=== PATIENT | female | born 1990 | race Caucasian/White ===

== ENCOUNTER 2016-07-23 15:44 | Emergency (ER) | payer OTHER ==
--- NOTE | 2016-07-23 17:56 | ED CLINICAL REPORT ---
Clinical Report - Physicians/Mid Levels [facility] [address] [place] [address] 07/23/2016 15:44 Patient: KELLY BENNETT [facility]#: [id number] Time Seen: 15:53; initial patient contact, initial documentation, patient care assumed. Arrived- By private vehicle. Historian- patient. HISTORY OF PRESENT ILLNESS Chief Complaint: VAGINAL BLEEDING. This started about 2 - 3 days ago and still present. It was abrupt in onset and has been intermittent. The symptoms are described as moderate. Modifying factors. Not worsened by anything. Not relieved by anything. 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 No abdominal pain, pelvic pain, vaginal pain, low back pain or flank pain. No missed period(s), vaginal discharge, pain with urination, urinary frequency or urgency of urination. No hematuria. Sexually active- unprotected sex and heterosexual. No exposure to sexually transmitted disease. Does not use control measures. (pt has vitamins, first ob appt 08/06). Currently . In 1st trimester. confirmed with home test and urine test. Has had no care. G 4. P 3. Not receiving care. Similar symptoms previously: None. Recent medical care: Not recently seen/assessed. REVIEW OF SYSTEMS No vomiting, diarrhea, fever, difficulty breathing or chest pain. All systems otherwise negative, except as recorded above. PAST HISTORY See nurses notes. ( PROBLEMS: Pg, bleeding . Vomiting. Abdominal Pain. Recent Travel. --15:52 Tanisha Davis R.N. ADDITIONAL SURGERIES: no known surgeries.). SOCIAL HISTORY Never smoker. Occasional alcohol use. No drug use. No recent travel. Is a local resident. FAMILY HISTORY Negative. ADDITIONAL NOTES The nursing notes have been reviewed with agreement regarding the chief complaint, HPI, ROS, PMH and patient medications and allergies. PHYSICAL EXAM Vital Signs: 07/23/2016 16:15 BP: 103/54. HR: 98. RR: 18. O2 saturation: 100%. Temp: 98.7 F. Pain level now: 0/10. Have been reviewed as normal and appear to be correct. Appearance: Alert. Oriented X3. No acute distress. HEENT: Normal external inspection. ENT: Pharynx normal. Neck: Neck supple. CVS: Heart sounds normal. Respiratory: No respiratory distress. Breath sounds normal. Chest nontender. Abdomen: Soft and nontender. Bowel sounds normal. No organomegaly. No mass. Back: Normal external inspection. : External inspection normal. Speculum exam abnormal. Slight vaginal bleeding, consisting of bright red blood, via the cervical os. No vaginal bleeding from a cervical lesion or vaginal laceration. No vaginal discharge. Cervical os closed. No tissue present. No cervicitis. No herpes-like lesions. Bimanual exam normal. Skin: Skin warm and dry. Normal skin color. No rash. Normal skin turgor. Extremities: Extremities nontender. No lower extremity edema. Neuro: Oriented X 3. Mood/affect normal. No motor deficit. No sensory deficit. LABS, X-RAYS, AND EKG Pelvic Sonogram: . iup 6w3d small bleed, hr 141 per verbal report us tech. Interpretation time: 17:01. Laboratory Tests: UA-Culture if indicated: (RUBEN: 07/23/2016 15:50) ( MsgRcvd 07/23/2016 16:39) Final results Test Result Flag Units (Reference) URINE COLOR YELLOW URINE APPEARANCE CLOUDY URINE GLUCOSE NEGATIVE (NEGATIVE) URINE BILIRUBIN NEGATIVE (NEGATIVE) URINE KETONE NEGATIVE (NEGATIVE) URINE SPECIFIC GRAVITY 1.020 (1.010-1.030) URINE PH 7.5 (5.0-8.0) URINE PROTEIN NEGATIVE (NEGATIVE) URINE UROBILINOGEN 0.2 EU/dL (0.2-1.0) URINE NITRITE NEGATIVE (NEGATIVE) URINE BLOOD 1+ (NEGATIVE) URINE LEUK ESTERASE NEGATIVE (NEGATIVE) URINE RBC 0-1 rbc/hpf (0-1) URINE WBC NONE SEEN wbc/hpf (0-1) URINE EPITHELIAL CELLS 1-3 EPI/hpf (0-5) URINE BACTERIA NONE SEEN (NONE SEEN) 4+ AMORPHOUS URINE COMMENT CULT NOT INDICATED URINE CULTURES ARE SET-UP BASED ON THE FOLLOWING CRITERIA:POSITIVE NITRITEPOSITIVE LEUKOCYTE ESTERASEGREATER THAN 10 WHITE BLOOD CELLSMODERATE (2+) OR GREATER BACTERIA Serum Qualitative: (RUBEN: 07/23/2016 16:25) ( [facility] 07/23/2016 17:54) Final results Test Result Flag Units (Reference) , SERUM POSITIVE CBC w Diff: (RUBEN: 07/23/2016 16:25) ( [facility] 07/23/2016 16:58) Final results Test Result Flag Units (Reference) WHITE BLOOD COUNT 9.8 K/uL (4.5-11.5) RED BLOOD COUNT 4.59 M/uL (4.00-5.20) HEMOGLOBIN 12.7 gm/dL (12.0-16.0) HEMATOCRIT 38.7 % (36.0-46.0) MEAN CELL VOLUME 84 fL (80-100) MEAN CORPUSCULAR HGB 28 pg (26-34) MEAN CORPUSCULAR HGB CONC 33 g/dL (31-37) RED CELL DISTRIBUTION WIDTH 15.4 H % (11.6-14.8) PLATELET COUNT 315 K/uL (150-400) NEUTROPHIL % 69.9 % (50-75) LYMPH % 22.9 L % (25-40) MONO % 5.2 % (3-14) EOSINOPHIL % 1.4 % (0-4) BASOPHIL % 0.6 % (0-2) Serum Quantitative: (RUBEN: 07/23/2016 16:25) ( [facility] 07/23/2016 18:47) Final results Test Result Flag Units (Reference) BETA HCG, QUANTITATIVE 4719 mIU/mL REFERENCE RANGE:Adult Males: <2 mIU/mLNon- Females: <6 mIU/mL Females:Approximate Approximate hCGGestational Age Range (mIU/mL) 0-1 week 0-501-2 weeks 40-3002-3 weeks 100-06402-3 weeks 500-74128-0 months 5,000-200,0002-3 months 10,000-100,0002nd trimester 3,000-50,0003rd trimester 1,000-50,000 CMP: (RUBEN: 07/23/2016 16:25) ( MsgRcvd 07/23/2016 17:10) Final results Test Result Flag Units (Reference) GLUCOSE 100 mg/dL (70-110) BUN 13 mg/dL (7-18) CREATININE 1.0 mg/dL (0.6-1.3) Estimated GFR >60 mL/min Estimated GFR- >60 mL/min Note: Persistent reduction over 3 months in eGFR<60 mL/min/1.73 m2 defines CKD. Patients with eGFR values>=60 mL/min/1.73 m2 may also have CKD if evidence ofpersistent proteinuria. Additional information may be foundat www.kidney.org. SODIUM 141 mmol/L (136-145) POTASSIUM 3.7 mmol/L (3.5-5.1) CHLORIDE 103 mmol/L (98-107) CARBON DIOXIDE 23 mmol/L (21-32) CALCIUM 9.0 mg/dL (8.5-10.1) TOTAL PROTEIN 8.3 H g/dL (6.4-8.2) ALBUMIN 4.3 g/dL (3.3-5.0) BILIRUBIN, TOTAL 0.2 mg/dL (0.0-1.0) ALKALINE PHOSPHATASE 92 U/L (46-116) AST (SGOT) 13 L U/L (15-37) ALT (SGPT) 21 U/L (12-78) . PROGRESS AND PROCEDURES Course of Care: 16:42 07/23/16. Gaurang from lab called, pt's Rh type O+. Patient counseled in person regarding the patient's stable condition, test results and diagnosis. Differential Diagnosis: I considered vaginal polyps, vaginal lesion, vaginal cancer, vulvar infection, ovarian cysts, polycystic disease of the ovaries, pelvic inflammatory disease, endometriosis, uterine fibroids, intrauterine , ectopic , incomplete , threatened , endometritis, fibroids and dysfunctional uterine bleeding as a possible cause of vaginal bleeding in this patient. This is a partial list of diagnoses considered. Above considerations are based on history, physical exam, laboratory data and other information. Differential diagnosis was discussed with patient. Disposition: Discharged home in good and unchanged condition (17:56). Condition: good and stable. CLINICAL IMPRESSION Threatened ; positive test in emergency department. Ultrasound demonstrated an intrauterine . INSTRUCTIONS Warnings: GENERAL WARNINGS: Return or contact your physician immediately if your condition worsens or changes unexpectedly, if not improving as expected, or if other problems arise. Specifically return if problem worsens. Follow-up: Follow up with your doctor in about two days even if well. Call for an appointment. Summary of care provided to patient. Understanding of the discharge instructions verbalized by patient. (Electronically signed by Mansi Hill A.R.N.P. 07/23/2016 19:06)
--- NOTE | 2016-07-23 17:56 | ED NURSING NOTES ---
Clinical Report - Nurses [facility] [address] [place] [address] 07/23/2016 15:44 [id number] Triage time 15:52. Acuity: LEVEL 3. Chief Complaint: SPOTTING. Alert. No acute distress. --16:19 Tanisha Davis R.N. 16:15 07/23/16. BP: 103/54. HR: 98. RR: 18. O2 saturation: 100%. Temp: 98.7 F. Pain level now: 0/10. --16:19 Tanisha Davis R.N. 16:15 07/23/16. BP: 103/54. HR: 98. RR: 18. O2 saturation: 100%. Temp: 98.7 F. Pain level now: 0/10. --16:19 Tanisha Davis R.N. Weight: 56.6 kg estimated. Height/Length: 60 inches Estimated. BMI: 24.4. --16:18 Tanisha Davis R.N. Medications None. --16:15 Tanisha Davis R.N. Medication/allergy information source: the patient. --16:19 Tanisha Davis R.N. Allergies None. --16:15 Tanisha Davis R.N. History Arrived by private vehicle. Historian: patient and family. Accompanied by family. Onset. (2 days ago). Last oral intake by patient was today (1100). 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 PAST MEDICAL HX: Last normal menstrual period- June 04. 4. Para 3. Abortions 0. SOCIAL HX: Never smoker. Occasional alcohol use. No drug use. FALL RISK ASSESSMENT: Fall risk assessment completed. No fall risk identified. NUTRITIONAL RISK ASSESSMENT: The nutritional risk assessment revealed no deficiencies. FUNCTIONAL ASSESSMENT: Functional assessment: no impairments noted. LEARNING NEEDS ASSESSMENT: The learning needs assessment revealed no barriers. SKIN INTEGRITY ASSESSMENT: Skin integrity risk assessment completed. No skin integrity risk identified. --16:19 Tanisha Davis R.N. PROBLEMS: Pg, bleeding . Vomiting. Abdominal Pain. Recent Travel. --15:52 Tanisha Davis R.N. ADDITIONAL SURGERIES: no known surgeries. Interventions ID band on patient. To room. --16:19 Tanisha Davis R.N. PHYSICAL ASSESSMENT Ambulatory to room. Patient gowned. GENERAL / NEURO / PSYCH: Alert. Oriented X 4. Appears in no acute distress. Appears anxious. HEENT: Mucous membranes are pink. RESPIRATORY: Respirations not labored. CVS: Capillary refill less than 2 seconds. GI / : Abdomen nontender. Scant vaginal bleeding present. EXTREMITIES: No lower extremity edema. SKIN: Skin is warm and dry. --16:20 Tanisha Davis R.N. NURSING PROGRESS NOTES Patient gowned. Head of bed elevated. Two patient identifiers checked. Call light placed in reach. Side rails up x 2. Bed placed in lowest position. Brakes of bed on. Patient ready for evaluation- chart flagged. --16:20 Tanisha Davis R.N. PELVIC EXAM: Pelvic exam performed by PROTOTYPE ENGINEER. Assisted by one nurse. Preparation: pelvic tray; patient placed in lithotomy position. Procedure: speculum exam. Light amount of vaginal bleeding noted. Status post-procedure: she was stable. Total time of assist / procedure: 15 minutes. --16:20 Tanisha Davis R.N. 16:30 07/23/2016 Site #1 started via IV in the right antecubital space with an 22g angiocath, with aseptic technique and good blood return; one attempt. Blood drawn: rainbow set. Labeled in the presence of the patient and sent to the lab. Saline lock flushed with 10 mL saline. --16:35 Tanisha Davis R.N. DISPOSITION / DISCHARGE 18:07/23/2016 Site #1 removed upon discharge. Catheter intact. --18:09 Waldemar Perry R.N. 18:07/23/16. Condition at departure: improved. The goals identified in the patient's plan of care were met. No learning barriers present. Discharge instructions provided and reviewed with the patient. Reviewed warnings. Reviewed medication(s). Treatments reviewed. Patient and spouse verbalized understanding. Written instructions provided in [place]. ( Pt to follow up with OB MD tomorrow). The patient was discharged by the physician. She was discharged home and accompanied by family. She left the Emergency Department ambulatory and via private vehicle. Family member driving. FALL RISK ASSESSMENT: Fall risk assessment completed. No fall risk identified. --18:09 Waldemar Perry R.N. 18:08 07/23/16. BP: 106/66. HR: 71. RR: 14. O2 saturation: 100% on room air. Temp: 97.9 F (oral). Pain level now: 0/10. --18:09 Waldemar Perry R.N. 18:09 07/23/16. Departure time: 18:09. --18:09 Waldemar Perry R.N. Locked/Released at 07/23/2016 18:10 by Waldemar Perry R.N.
--- NOTE | 2016-07-23 17:56 | ED ORDER SUMMARY ---
..... Patient: KELLY BENNETT OrderSheet [facility] VisitID: [id number] [address] [place] [address] 26y, F Registration Date/Time: 07/23/2016 ORDER SHEET Weight: 56.6 kg (estimated) Allergies: None GENERAL ORDERS: US OB 1st Trimester w Transvag (approx 6-7 wks) Urgent (16:13 07/23/2016 HBivens A.R.N.P.) (Ack 16:14 KHoerner) (16:35 SRoberts R.N.) CBC w Diff Urgent (16:14 07/23/2016 HBivens A.R.N.P.) (Ack 16:14 KHoerner) (16:35 SRoberts R.N.) CMP Urgent (16:14 07/23/2016 HBivens A.R.N.P.) (Ack 16:14 KHoerner) (16:35 SRoberts R.N.) UA-Culture if indicated Urgent (16:14 07/23/2016 HBivens A.R.N.P.) (Ack 16:14 KHoerner) (16:35 SRoberts R.N.) Serum Qualitative Urgent (16:14 07/23/2016 HBivens A.R.N.P.) (Ack 16:14 KHoerner) (16:35 SRoberts R.N.) Type & Rh Urgent (16:14 07/23/2016 HBivens A.R.N.P.) (Ack 16:14 KHoerner) (16:35 SRoberts R.N.) (Cancelled: Other16:43 HBivens A.R.N.P.) Serum Quantitative Urgent (17:52 07/23/2016 HBivens A.R.N.P.) (Ack 17:55 KHoerner) (17:55 KHoerner) MEDICATION ORDERS: IV FLUIDS: IV Saline Lock (16:14 07/23/2016 HBivens A.R.N.P.) (16:35 SRoberts R.N.) ORDER SHEET NOTES: [Electronically signed by Waldemar Perry R.N. (18:10 07/23/2016)] [Electronically signed by Mansi Hill (19:06 07/23/2016)] [Electronically locked/signed by Waldemar Perry R.N. (18:10 07/23/2016)]
--- NOTE | 2016-07-23 17:56 | ED CLINICAL REPORT ---
Clinical Report - Physicians/Mid Levels [facility] [address] [place] [address] 07/23/2016 15:44 [id number] Time Seen: 15:53; initial patient contact, initial documentation, patient care assumed. Arrived- By private vehicle. Historian- patient. HISTORY OF PRESENT ILLNESS Chief Complaint: VAGINAL BLEEDING. This started about 2 - 3 days ago and still present. It was abrupt in onset and has been intermittent. The symptoms are described as moderate. Modifying factors. Not worsened by anything. Not relieved by anything. 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 No abdominal pain, pelvic pain, vaginal pain, low back pain or flank pain. No missed period(s), vaginal discharge, pain with urination, urinary frequency or urgency of urination. No hematuria. Sexually active- unprotected sex and heterosexual. No exposure to sexually transmitted disease. Does not use control measures. (pt has vitamins, first ob appt 08/06). Currently . In 1st trimester. confirmed with home test and urine test. Has had no care. G 4. P 3. Not receiving care. Similar symptoms previously: None. Recent medical care: Not recently seen/assessed. REVIEW OF SYSTEMS No vomiting, diarrhea, fever, difficulty breathing or chest pain. All systems otherwise negative, except as recorded above. PAST HISTORY See nurses notes. ( PROBLEMS: Pg, bleeding . Vomiting. Abdominal Pain. Recent Travel. --15:52 Tanisha Davis R.N. ADDITIONAL SURGERIES: no known surgeries.). SOCIAL HISTORY Never smoker. Occasional alcohol use. No drug use. No recent travel. Is a local resident. FAMILY HISTORY Negative. ADDITIONAL NOTES The nursing notes have been reviewed with agreement regarding the chief complaint, HPI, ROS, PMH and patient medications and allergies. PHYSICAL EXAM Vital Signs: 07/23/2016 16:15 BP: 103/54. HR: 98. RR: 18. O2 saturation: 100%. Temp: 98.7 F. Pain level now: 0/10. Have been reviewed as normal and appear to be correct. Appearance: Alert. Oriented X3. No acute distress. HEENT: Normal external inspection. ENT: Pharynx normal. Neck: Neck supple. CVS: Heart sounds normal. Respiratory: No respiratory distress. Breath sounds normal. Chest nontender. Abdomen: Soft and nontender. Bowel sounds normal. No organomegaly. No mass. Back: Normal external inspection. : External inspection normal. Speculum exam abnormal. Slight vaginal bleeding, consisting of bright red blood, via the cervical os. No vaginal bleeding from a cervical lesion or vaginal laceration. No vaginal discharge. Cervical os closed. No tissue present. No cervicitis. No herpes-like lesions. Bimanual exam normal. Skin: Skin warm and dry. Normal skin color. No rash. Normal skin turgor. Extremities: Extremities nontender. No lower extremity edema. Neuro: Oriented X 3. Mood/affect normal. No motor deficit. No sensory deficit. LABS, X-RAYS, AND EKG Pelvic Sonogram: . iup 6w3d small bleed, hr 141 per verbal report us tech. Interpretation time: 17:01. Laboratory Tests: UA-Culture if indicated: (RUBEN: 07/23/2016 15:50) ( MsgRcvd 07/23/2016 16:39) Final results Test Result Flag Units (Reference) URINE COLOR YELLOW URINE APPEARANCE CLOUDY URINE GLUCOSE NEGATIVE (NEGATIVE) URINE BILIRUBIN NEGATIVE (NEGATIVE) URINE KETONE NEGATIVE (NEGATIVE) URINE SPECIFIC GRAVITY 1.020 (1.010-1.030) URINE PH 7.5 (5.0-8.0) URINE PROTEIN NEGATIVE (NEGATIVE) URINE UROBILINOGEN 0.2 EU/dL (0.2-1.0) URINE NITRITE NEGATIVE (NEGATIVE) URINE BLOOD 1+ (NEGATIVE) URINE LEUK ESTERASE NEGATIVE (NEGATIVE) URINE RBC 0-1 rbc/hpf (0-1) URINE WBC NONE SEEN wbc/hpf (0-1) URINE EPITHELIAL CELLS 1-3 EPI/hpf (0-5) URINE BACTERIA NONE SEEN (NONE SEEN) 4+ AMORPHOUS URINE COMMENT CULT NOT INDICATED URINE CULTURES ARE SET-UP BASED ON THE FOLLOWING CRITERIA:POSITIVE NITRITEPOSITIVE LEUKOCYTE ESTERASEGREATER THAN 10 WHITE BLOOD CELLSMODERATE (2+) OR GREATER BACTERIA Serum Qualitative: (RUBEN: 07/23/2016 16:25) ( [facility] 07/23/2016 17:54) Final results Test Result Flag Units (Reference) , SERUM POSITIVE CBC w Diff: (RUBNE: 07/23/2016 16:25) ( [facility] 07/23/2016 16:58) Final results Test Result Flag Units (Reference) WHITE BLOOD COUNT 9.8 K/uL (4.5-11.5) RED BLOOD COUNT 4.59 M/uL (4.00-5.20) HEMOGLOBIN 12.7 gm/dL (12.0-16.0) HEMATOCRIT 38.7 % (36.0-46.0) MEAN CELL VOLUME 84 fL (80-100) MEAN CORPUSCULAR HGB 28 pg (26-34) MEAN CORPUSCULAR HGB CONC 33 g/dL (31-37) RED CELL DISTRIBUTION WIDTH 15.4 H % (11.6-14.8) PLATELET COUNT 315 K/uL (150-400) NEUTROPHIL % 69.9 % (50-75) LYMPH % 22.9 L % (25-40) MONO % 5.2 % (3-14) EOSINOPHIL % 1.4 % (0-4) BASOPHIL % 0.6 % (0-2) Serum Quantitative: (RUBEN: 07/23/2016 16:25) ( [facility] 07/23/2016 18:47) Final results Test Result Flag Units (Reference) BETA HCG, QUANTITATIVE 4719 mIU/mL REFERENCE RANGE:Adult Males: <2 mIU/mLNon- Females: <6 mIU/mL Females:Approximate Approximate hCGGestational Age Range (mIU/mL) 0-1 week 0-501-2 weeks 40-3002-3 weeks 100-87307-1 weeks 500-66646-6 months 5,000-200,0002-3 months 10,000-100,0002nd trimester 3,000-50,0003rd trimester 1,000-50,000 CMP: (RUBEN: 07/23/2016 16:25) ( MsgRcvd 07/23/2016 17:10) Final results Test Result Flag Units (Reference) GLUCOSE 100 mg/dL (70-110) BUN 13 mg/dL (7-18) CREATININE 1.0 mg/dL (0.6-1.3) Estimated GFR >60 mL/min Estimated GFR- >60 mL/min Note: Persistent reduction over 3 months in eGFR<60 mL/min/1.73 m2 defines CKD. Patients with eGFR values>=60 mL/min/1.73 m2 may also have CKD if evidence ofpersistent proteinuria. Additional information may be foundat www.kidney.org. SODIUM 141 mmol/L (136-145) POTASSIUM 3.7 mmol/L (3.5-5.1) CHLORIDE 103 mmol/L (98-107) CARBON DIOXIDE 23 mmol/L (21-32) CALCIUM 9.0 mg/dL (8.5-10.1) TOTAL PROTEIN 8.3 H g/dL (6.4-8.2) ALBUMIN 4.3 g/dL (3.3-5.0) BILIRUBIN, TOTAL 0.2 mg/dL (0.0-1.0) ALKALINE PHOSPHATASE 92 U/L (46-116) AST (SGOT) 13 L U/L (15-37) ALT (SGPT) 21 U/L (12-78) . PROGRESS AND PROCEDURES Course of Care: 16:42 07/23/16. Gaurang from lab called, pt's Rh type O+. Patient counseled in person regarding the patient's stable condition, test results and diagnosis. Differential Diagnosis: I considered vaginal polyps, vaginal lesion, vaginal cancer, vulvar infection, ovarian cysts, polycystic disease of the ovaries, pelvic inflammatory disease, endometriosis, uterine fibroids, intrauterine , ectopic , incomplete , threatened , endometritis, fibroids and dysfunctional uterine bleeding as a possible cause of vaginal bleeding in this patient. This is a partial list of diagnoses considered. Above considerations are based on history, physical exam, laboratory data and other information. Differential diagnosis was discussed with patient. Disposition: Discharged home in good and unchanged condition (17:56). Condition: good and stable. CLINICAL IMPRESSION Threatened ; positive test in emergency department. Ultrasound demonstrated an intrauterine . INSTRUCTIONS Warnings: GENERAL WARNINGS: Return or contact your physician immediately if your condition worsens or changes unexpectedly, if not improving as expected, or if other problems arise. Specifically return if problem worsens. Follow-up: Follow up with your doctor in about two days even if well. Call for an appointment. Summary of care provided to patient. Understanding of the discharge instructions verbalized by patient. (Electronically signed by Mansi Hill A.R.N.P. 07/23/2016 19:06)
--- NOTE | 2016-07-23 17:56 | ED NURSING NOTES ---
Clinical Report - Nurses [facility] [address] [place] [address] 07/23/2016 15:44 [id number] Triage time 15:52. Acuity: LEVEL 3. Chief Complaint: SPOTTING. Alert. No acute distress. --16:19 Tanisha Davis R.N. 16:15 07/23/16. BP: 103/54. HR: 98. RR: 18. O2 saturation: 100%. Temp: 98.7 F. Pain level now: 0/10. --16:19 Tanisha Davis R.N. 16:15 07/23/16. BP: 103/54. HR: 98. RR: 18. O2 saturation: 100%. Temp: 98.7 F. Pain level now: 0/10. --16:19 Tanisha Davis R.N. Weight: 56.6 kg estimated. Height/Length: 60 inches Estimated. BMI: 24.4. --16:18 Tanisha Davis R.N. Medications None. --16:15 Tanisha Davis R.N. Medication/allergy information source: the patient. --16:19 Tanisha Davis R.N. Allergies None. --16:15 Tanisha Davis R.N. History Arrived by private vehicle. Historian: patient and family. Accompanied by family. Onset. (2 days ago). Last oral intake by patient was today (1100). 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 PAST MEDICAL HX: Last normal menstrual period- June 04. 4. Para 3. Abortions 0. SOCIAL HX: Never smoker. Occasional alcohol use. No drug use. FALL RISK ASSESSMENT: Fall risk assessment completed. No fall risk identified. NUTRITIONAL RISK ASSESSMENT: The nutritional risk assessment revealed no deficiencies. FUNCTIONAL ASSESSMENT: Functional assessment: no impairments noted. LEARNING NEEDS ASSESSMENT: The learning needs assessment revealed no barriers. SKIN INTEGRITY ASSESSMENT: Skin integrity risk assessment completed. No skin integrity risk identified. --16:19 Tanisha Davis R.N. PROBLEMS: Pg, bleeding . Vomiting. Abdominal Pain. Recent Travel. --15:52 Tanisha Davis R.N. ADDITIONAL SURGERIES: no known surgeries. Interventions ID band on patient. To room. --16:19 Tanisha Davis R.N. PHYSICAL ASSESSMENT Ambulatory to room. Patient gowned. GENERAL / NEURO / PSYCH: Alert. Oriented X 4. Appears in no acute distress. Appears anxious. HEENT: Mucous membranes are pink. RESPIRATORY: Respirations not labored. CVS: Capillary refill less than 2 seconds. GI / : Abdomen nontender. Scant vaginal bleeding present. EXTREMITIES: No lower extremity edema. SKIN: Skin is warm and dry. --16:20 Tanisha Davis R.N. NURSING PROGRESS NOTES Patient gowned. Head of bed elevated. Two patient identifiers checked. Call light placed in reach. Side rails up x 2. Bed placed in lowest position. Brakes of bed on. Patient ready for evaluation- chart flagged. --16:20 Tanisha Davis R.N. PELVIC EXAM: Pelvic exam performed by FINANCIAL PLANNING ADVISOR. Assisted by one nurse. Preparation: pelvic tray; patient placed in lithotomy position. Procedure: speculum exam. Light amount of vaginal bleeding noted. Status post-procedure: she was stable. Total time of assist / procedure: 15 minutes. --16:20 Tanisha Davis R.N. 16:30 07/23/2016 Site #1 started via IV in the right antecubital space with an 22g angiocath, with aseptic technique and good blood return; one attempt. Blood drawn: rainbow set. Labeled in the presence of the patient and sent to the lab. Saline lock flushed with 10 mL saline. --16:35 Tanisha Davis R.N. DISPOSITION / DISCHARGE 18:07/23/2016 Site #1 removed upon discharge. Catheter intact. --18:09 Waldemar Perry R.N. 18:07/23/16. Condition at departure: improved. The goals identified in the patient's plan of care were met. No learning barriers present. Discharge instructions provided and reviewed with the patient. Reviewed warnings. Reviewed medication(s). Treatments reviewed. Patient and spouse verbalized understanding. Written instructions provided in Swedish. ( Pt to follow up with OB MD tomorrow). The patient was discharged by the physician. She was discharged home and accompanied by family. She left the Emergency Department ambulatory and via private vehicle. Family member driving. FALL RISK ASSESSMENT: Fall risk assessment completed. No fall risk identified. --18:09 Waldemar Perry R.N. 18:08 07/23/16. BP: 106/66. HR: 71. RR: 14. O2 saturation: 100% on room air. Temp: 97.9 F (oral). Pain level now: 0/10. --18:09 Waldemar Perry R.N. 18:09 07/23/16. Departure time: 18:09. --18:09 Waldemar Perry R.N. Locked/Released at 07/23/2016 18:10 by Waldemar Perry R.N.
--- NOTE | 2016-07-23 17:56 | ED ORDER SUMMARY ---
..... Patient: KELLY BENNETT OrderSheet [facility] VisitID: [id number] [address] [place] [address] 26y, F Registration Date/Time: 07/23/2016 ORDER SHEET Weight: 56.6 kg (estimated) Allergies: None GENERAL ORDERS: US OB 1st Trimester w Transvag (approx 6-7 wks) Urgent (16:13 07/23/2016 HBivens A.R.N.P.) (Ack 16:14 KHoerner) (16:35 SRoberts R.N.) CBC w Diff Urgent (16:14 07/23/2016 HBivens A.R.N.P.) (Ack 16:14 KHoerner) (16:35 SRoberts R.N.) CMP Urgent (16:14 07/23/2016 HBivens A.R.N.P.) (Ack 16:14 KHoerner) (16:35 SRoberts R.N.) UA-Culture if indicated Urgent (16:14 07/23/2016 HBivens A.R.N.P.) (Ack 16:14 KHoerner) (16:35 SRoberts R.N.) Serum Qualitative Urgent (16:14 07/23/2016 HBivens A.R.N.P.) (Ack 16:14 KHoerner) (16:35 SRoberts R.N.) Type & Rh Urgent (16:14 07/23/2016 HBivens A.R.N.P.) (Ack 16:14 KHoerner) (16:35 SRoberts R.N.) (Cancelled: Other16:43 HBivens A.R.N.P.) Serum Quantitative Urgent (17:52 07/23/2016 HBivens A.R.N.P.) (Ack 17:55 KHoerner) (17:55 KHoerner) MEDICATION ORDERS: IV FLUIDS: IV Saline Lock (16:14 07/23/2016 HBivens A.R.N.P.) (16:35 SRoberts R.N.) ORDER SHEET NOTES: [Electronically signed by Waldemar Perry R.N. (18:10 07/23/2016)] [Electronically signed by Mansi Hill (19:06 07/23/2016)] [Electronically locked/signed by Waldemar Perry R.N. (18:10 07/23/2016)]
--- NOTE | 2016-07-23 19:05 | DIAGNOSTIC IMAGING REPORT ---
PROCEDURE: US OB 1ST TRIMESTER W/TRANSVAG INDICATION: ABNORMAL BLEEDING TECHNIQUE: Gardner scale, color, and spectral Doppler transabdominal and endovaginal sonographic images of the first trimester gravid uterus were obtained. COMPARISON: None. FINDINGS: TRANSABDOMINAL SCANS: There is an early intrauterine gestational sac. TRANSVAGINAL SCANS: There is early viable intrauterine with cardiac activity (141). Zumbrota-rump length is 6 mm (6.3 weeks). However, gestational sac (10 mm) is relatively small (5.7 weeks), and there is an abnormally enlarged yolk sac (6.5 mm). There is a heterogeneous appearance of the endometrium with submucosal cystic changes of. No evidence of free fluid. Adnexal structures are normal. IMPRESSION: 1. Early viable intrauterine at 6.3 weeks menstrual age (plus or minus 0.7 weeks). TORRES based on today's study is 03/15/2017. 2. Gestational sac size is relatively small (5.7 weeks) with an enlarged yolk sac (6.5 mm), and these changes are often associated with poor outcome with spontaneous miscarriage. 3. Mild cystic hyperplasia of the endometrium. 4. Findings discussed with HOWARD Lancaster.
--- NOTE | 2016-07-23 19:06 | ED MED RECONCILIATION SUMMARY ---
Patient: KELLY BENNETT Medication Reconciliation Report [facility] VisitID: [id number] [address] [place] [address] 26y, F Registration Date/Time: 07/23/2016 Weight: 56.6 kg Height/Length: 60 in. BMI: 24.4 ALLERGIES: None The patient's Home Medications are listed below: NONE. The source(s) of the original Home Medication information: patient The following Medications were given to the patient in the Emergency Department: None. The following Medications were prescribed to the patient: None.
--- NOTE | 2016-07-23 19:06 | ED MED RECONCILIATION SUMMARY ---
Patient: KELLY BENNETT Medication Reconciliation Report [facility] VisitID: [id number] [address] [place] [place] [address] 26y, F Registration Date/Time: 07/23/2016 Weight: 56.6 kg Height/Length: 60 in. BMI: 24.4 ALLERGIES: None The patient's Home Medications are listed below: NONE. The source(s) of the original Home Medication information: patient The following Medications were given to the patient in the Emergency Department: None. The following Medications were prescribed to the patient: None.
--- NOTE | 2016-07-23 19:06 | ED MAR SUMMARY ---
..... Medication Administration Record [facility] [address] [place], [place] [id number] Patient: ENRIQUETA GASTONYUMIKO KELLY Visit ID: [id number] 26y, F Weight: 56.6 kg Height/Length: 60 in BMI: 24.4 ALLERGIES: None
--- NOTE | 2016-07-23 19:06 | ED DISCHARGE INSTRUCTIONS ---
Patient: KELLY BENNETT General Instructions [facility] VisitID: [id number] [place] [address] 26y, F Registration Date/Time: 07/23/2016 INSTRUCTIONS Warnings: GENERAL WARNINGS: Return or contact your physician immediately if your condition worsens or changes unexpectedly, if not improving as expected, or if other problems arise. Specifically return if problem worsens. Follow-up: Follow up with your doctor in about two days even if well. Call for an appointment. Summary of care provided to patient. Understanding of the discharge instructions verbalized by patient. ADDITIONAL INFORMATION Possible Miscarriage (Threatened ) During early (first three months), it is not uncommon to have a small amount of bleeding. This can be entirely normal. But heavy bleeding or severe cramping can be an early sign of miscarriage. A miscarriage means unexpected loss of your . In about half of patients with bleeding or cramping during early , these symptoms will stop and the will continue normally. However, half of the time a miscarriage will occur. A miscarriage may occur due to various causes. These include a problem with the babys chromosomes (genes that carry the information needed for life) or with fertilization or implantation that didnt happen correctly. In most cases no cause can be found. Be reassured that this is not the result of anything that you did wrong, and it will not interfere with your ability to become in the future. Home Care: To improve the chance of keeping this , you should do the following: Rest in bed until the pain and bleeding stop. Do not have sexual intercourse for the next 3 weeks. Use sanitary napkins instead of tampons. Do not douche. Follow-Up: Make an appointment with your doctor within the next week, or as directed by our staff. Note: If you had an ultrasound, it will be reviewed by a specialist. You will be notified of any new findings that may affect your care. Get Prompt Medical Attention if any of the following occur: Vaginal bleeding or pain for more than three days Heavy bleeding (soaking one new pad an hour over three hours) Fever of 100.4F (38C) or higher, or as directed by your healthcare provider Increasing lower abdominal pain Weakness, dizziness, or fainting Passage of anything that resembles tissue: pink or grayish membrane or solid material (save the tissue in a clean container and bring to the doctor) You have been given the following additional information: Possible Miscarriage (Threatened ) (Electronically signed by Mansi Hill A.R.N.P. 07/23/2016 19:06)
--- NOTE | 2016-07-23 19:06 | ED MAR SUMMARY ---
..... Medication Administration Record [facility] [address] [place], [place] [id number] Patient: ENRIQUETA GASTONYUMIKO KELLY Visit ID: [id number] 26y, F Weight: 56.6 kg Height/Length: 60 in BMI: 24.4 ALLERGIES: None
== END 2016-07-23 18:09 | disposition home or self-care (01) ==
LOC: ED SRH 15:44
DX: O20.0 Threatened abortion (principal); Z3A.01 Less than 8 weeks gestation of pregnancy
CPT/HCPCS: 90004; 90100; 90197; 95059; 98428

== ENCOUNTER 2016-07-30 09:49 | Emergency (ER) | payer OTHER ==
--- NOTE | 2016-07-30 12:10 | ED NURSING NOTES ---
Clinical Report - Nurses [facility] [address] [place] [address] 07/30/2016 9:51 [id number] TRI[facility] Triage time 09:59. Acuity: LEVEL 3. Chief Complaint: ABDOMINAL CRAMPS. Alert. No acute distress. TIM COMA SCORE: Tim Coma Scale: 15- eyes open spontaneously (4); best verbal response- oriented x 4 (5); best motor response- obeys commands (6). --10:04 Tiffany Asencio R.N. 09:59 07/30/16. BP: 102/75. HR: 87. RR: 18. O2 saturation: 100% on room air. Temp: 98.1 F (oral). Pain level now: 0/10. --10:04 Tiffany Asencio R.N. Weight: 58.9 kg estimated. Height/Length: 63 inches Estimated. BMI: 23. --10:02 Tiffany Asencio R.N. Medications None. --10:00 Tiffany Asencio R.N. Medication/allergy information source: the patient. --10:04 Tiffany Asencio R.N. Allergies No Known Drug Allergy. --10:00 Tiffany Asencio R.N. History Arrived by private vehicle. Historian: patient. Accompanied by friend. Primary physician (none). This started today. ( thinks she has a miscarriage a couple of hours ago, states she was approx 7 weeks ). PAST MEDICAL HX: Last normal menstrual period- May. OB history: G 4; P 3. SOCIAL HX: Never smoker. Occasional alcohol use. No drug use. FALL RISK ASSESSMENT: Fall risk assessment completed. No fall risk identified. FUNCTIONAL ASSESSMENT: Functional assessment: no impairments noted. LEARNING NEEDS ASSESSMENT: The learning needs assessment revealed no barriers. --10:04 Tiffany Asencio R.N. PROBLEMS: Threatened . Pg, bleeding . Vomiting. Abdominal Pain. Recent Travel. --10:00 Tiffany Asencio R.N. ADDITIONAL SURGERIES: no known surgeries. Assessment GENERAL / NEURO / PSYCH: Alert. Oriented X 4. Appears in no acute distress. Patient appears calm and cooperative. RESPIRATORY: Respirations not labored. SKIN: Skin is warm and dry. --10:04 Tiffany Asencio R.N. Interventions ID band on patient. To treatment room. --10:04 Tiffany Asencio R.N. PHYSICAL ASSESSMENT 10:00. Ambulatory to room. Patient gowned. GENERAL / NEURO / PSYCH: Alert. Oriented X 4. Appears in no acute distress. RESPIRATORY: Respirations not labored. SKIN: Skin is warm and dry. --10:53 Tiffany Asencio R.N. Ambulatory to room. GENERAL / NEURO / PSYCH: Oriented X 4. HEENT: Mucous membranes are pink. RESPIRATORY: Respirations not labored. Breath sounds within normal limits. GI / : Abdomen soft and nontender. Bowel sounds within normal limits. Scant vaginal bleeding present .1 pad per hour. No vaginal discharge. SKIN: Skin is warm and dry. --11:11 Nohelia Bradley R.N. NURSING PROGRESS NOTES 10:22 07/30/2016 Site #1 started via IV in the right antecubital space with an 20g angiocath, with aseptic technique and good blood return; one attempt. Blood drawn: rainbow set. Labeled in the presence of the patient and sent to the lab. --10:27 Tiffany Asencio R.N. The initial plan of care for this patient has been created This plan of care was discussed with the patient. Reassurance given. Two patient identifiers checked. Call light placed in reach. Side rails up. --10:39 Nohelia Bradley R.N. Warming measures: blanket applied. --10:39 Nohelia Bradley R.N. 11:15 07/30/2016 Site #1 reassessed; patent, infusing well and no signs of infection or infiltration. Good blood return present. Converted to saline lock. --11:15 Nohelia Bradley R.N. PELVIC EXAM: Pelvic exam performed by ED physician (Dr. Khan). Assisted by one nurse (RUSS Bradley). Preparation: pelvic tray. Procedure: speculum exam. Light amount of vaginal bleeding noted. No specimens collected. Status post-procedure: she was stable. Total time of assist / procedure: (Less than 5 minutes). Patient ID band checked for patient name, birthdate and medical record number: patient confirmed. Instructions provided to collect clean catch urine and patient verbalized understanding. Clean catch urine collected; sample sent to lab for urinalysis. Specimen labeled in the presence of the patient. The patient is calm and resting quietly. Overall patient status is the same- she states feels the same. GENERAL / NEURO / PSYCH: The patient reports anxiety. GI / : The patient reports pelvic pain located in the suprapubic area that is mild in severity. Denies nausea, abdominal pain or contractions. Abdomen nontender. Scant vaginal bleeding present. BACK: Denies low back pain. SKIN: Skin is warm and dry. --11:19 Nohelia Bradley R.N. 11:07 07/30/16. BP: 103/45 (regular adult cuff) taken on the left arm, via an automated monitor, while lying. HR: 84. RR: 14. O2 saturation: 100% on room air. Temp: 98.2 F (oral). Pain level now: 310. --11:19 Nohelia Bradley R.N. 12:25. Reassessment after fluids administered and procedure. She is calm and resting quietly. Overall patient status is the same- she states feels the same. SKIN: Skin is warm and dry. --12:31 Tiffany Asencio R.N. DISPOSITION / DISCHARGE 12:25 07/30/16. BP: 103/61. HR: 82. RR: 16. O2 saturation: 100% on room air. Temp: 98.1 F (oral). Pain level now: 0/10. --12:30 Tiffany Asencio R.N. Departure time: 1225. Condition at departure: stable. No learning barriers present. Discharge instructions provided and reviewed with the patient. Patient verbalized understanding. Written instructions provided in Mauritanian. ( Rx given for blood draw in 2 days). The patient was discharged home and accompanied by family. She left the Emergency Department ambulatory and via private vehicle. FALL RISK ASSESSMENT: Fall risk assessment completed. No fall risk identified. --12:30 Tiffany Asencio R.N. 11:30 07/30/2016 IV Saline Lock Drip IV Discontinued: bag #1 infused. Total amount infused: 1000 mL. --12:31 Tiffany Asencio R.N. 12:25 07/30/2016 Site #1 removed upon discharge. Catheter intact. Bandaid applied. --12:30 Tiffany Asencio R.N. Locked/Released at 07/30/2016 12:33 by Tiffany Asencio R.N.
--- NOTE | 2016-07-30 12:10 | ED ORDER SUMMARY ---
..... Patient: KELLY BENNETT OrderSheet [facility] VisitID: [id number] [place] [address] 26y, F Registration Date/Time: 07/30/2016 ORDER SHEET Weight: 58.9 kg (estimated) Allergies: No Known Drug Allergy GENERAL ORDERS: CBC w Diff Urgent (10:07/30/2016 Ata Dunham) (Ack 10:05 Andrea) (10:27 Kayla R.N.) CMP Urgent (10:07/30/2016 Ata Dunham) (Ack 10:05 Andrea) (10:27 Kayla R.N.) UA-Culture if indicated Urgent (10:07/30/2016 Ata Dunham) (Ack 10:05 Andrea) (11:21 Ayan R.N.) Serum Quantitative Urgent (10:07/30/2016 Ata Dunham) (Ack 10:05 Andrea) (10:27 Kayla R.N.) Type & Rh Urgent (10:07/30/2016 Ata Dunham) (Ack 10:05 Andrea) (10:27 Kayla R.N.) MEDICATION ORDERS: IV FLUIDS: IV Saline Lock (:07/30/2016 Ata Dunham) (10:27 Kayla R.N.) ORDER SHEET NOTES: [Electronically signed by Tiffany Asencio R.N. (12:33 07/30/2016)] [Electronically signed by Daren Khan Dr. (22:14 07/30/2016)] [Electronically locked/signed by Tiffany Asencio R.N. (12:33 07/30/2016)]
--- NOTE | 2016-07-30 12:10 | ED CLINICAL REPORT ---
Clinical Report - Physicians/Mid Levels [facility] [address] [place] [address] 07/30/2016 9:51 [id number] Time Seen: 10:01; initial patient contact. Arrived- By private vehicle. Historian- patient. HISTORY OF PRESENT ILLNESS Chief Complaint: VAGINAL BLEEDING and PASSING TISSUE. This started today and still present. It was abrupt in onset. The symptoms are described as moderate. Modifying factors. Not worsened by anything. Not relieved by anything. The patient has had mild, crampy pelvic pain. No flank pain, pain with urination, urinary frequency, urgency of urination or hematuria. Currently . Not receiving care. Similar symptoms previously: Once. Recent medical care: The patient was seen recently at this facility in the emergency department (Seen here 7 days ago for vag bleed. US confirmed IUP. beta HCG 4719. O+ blood type.). REVIEW OF SYSTEMS No nausea, vomiting, fever, chills or dizziness. No fainting episodes. All systems otherwise negative, except as recorded above. PAST HISTORY ( Threatened . Pg, bleeding . Vomiting. Abdominal Pain.). Additional Surgeries: no known surgeries. Medications: None. Allergies: No Known Drug Allergy. SOCIAL HISTORY Never smoker. Occasional alcohol use. No drug use. ADDITIONAL NOTES The nursing notes have been reviewed. PHYSICAL EXAM Vital Signs: 07/30/2016 09:59 BP: 102/75. HR: 87. RR: 18. O2 saturation: 100%. Temp: 98.1 F. Pain level now: 0/10. Have been reviewed as normal. Appearance: Alert. Oriented X3. No acute distress. HEENT: Normal external inspection. ENT: Pharynx normal. CVS: Heart sounds normal. Rate normal. Rhythm normal. Respiratory: No respiratory distress. Breath sounds normal. Abdomen: Soft. Mild tenderness in the lower abdomen. No guarding or rebound tenderness. Bowel sounds normal. No organomegaly. No mass. : Speculum exam performed. External inspection normal. Slight vaginal bleeding, consisting of dark blood, via the cervical os. Cervical os open. Cervical dilation present. No tissue present. No tenderness present on bimanual exam. No uterine tenderness. No tenderness with movement of the cervix. No adnexal tenderness. No adnexal mass/fullness. No pelvic mass. (RUSS Nava present for exam). Skin: Skin warm and dry. Normal skin color. Neuro: Oriented X 3. Mood/affect normal. LABS, X-RAYS, AND EKG Laboratory Tests: UA-Culture if indicated: (RUBEN: 07/30/2016 11:20) ( [facility] [place] 11:33) Final results Test Result Flag Units (Reference) URINE COLOR YELLOW URINE APPEARANCE CLEAR URINE GLUCOSE NEGATIVE (NEGATIVE) URINE BILIRUBIN NEGATIVE (NEGATIVE) URINE KETONE TRACE (NEGATIVE) URINE SPECIFIC GRAVITY 1.010 (1.010-1.030) URINE PH 7.0 (5.0-8.0) URINE PROTEIN NEGATIVE (NEGATIVE) URINE UROBILINOGEN 0.2 EU/dL (0.2-1.0) URINE NITRITE NEGATIVE (NEGATIVE) URINE BLOOD 2+ (NEGATIVE) URINE LEUK ESTERASE NEGATIVE (NEGATIVE) URINE RBC RARE rbc/hpf (0-1) URINE WBC 0-1 wbc/hpf (0-1) URINE EPITHELIAL CELLS 1-3 EPI/hpf (0-5) URINE BACTERIA FEW (1+) (NONE SEEN) URINE COMMENT CULT NOT INDICATED 1+ MUCOUSURINE CULTURES ARE SET-UP BASED ON THE FOLLOWING CRITERIA:POSITIVE NITRITEPOSITIVE LEUKOCYTE ESTERASEGREATER THAN 10 WHITE BLOOD CELLSMODERATE (2+) OR GREATER BACTERIA CBC w Diff: (RUBEN: 07/30/2016 10:15) ( [facility] [place] 10:33) Final results Test Result Flag Units (Reference) WHITE BLOOD COUNT 7.9 K/uL (4.5-11.5) RED BLOOD COUNT 4.53 M/uL (4.00-5.20) HEMOGLOBIN 12.6 gm/dL (12.0-16.0) HEMATOCRIT 38.2 % (36.0-46.0) MEAN CELL VOLUME 84 fL (80-100) MEAN CORPUSCULAR HGB 28 pg (26-34) MEAN CORPUSCULAR HGB CONC 33 g/dL (31-37) RED CELL DISTRIBUTION WIDTH 15.0 H % (11.6-14.8) PLATELET COUNT 342 K/uL (150-400) NEUTROPHIL % 70.2 % (50-75) LYMPH % 22.0 L % (25-40) MONO % 6.1 % (3-14) EOSINOPHIL % 1.4 % (0-4) BASOPHIL % 0.3 % (0-2) CMP: (RUBEN: 07/30/2016 10:15) ( MsgRcvd 07/30/2016 11:17) Final results Test Result Flag Units (Reference) GLUCOSE 91 mg/dL (70-110) BUN 9 mg/dL (7-18) CREATININE 0.5 L mg/dL (0.6-1.3) Estimated GFR >60 mL/min Estimated GFR- >60 mL/min Note: Persistent reduction over 3 months in eGFR<60 mL/min/1.73 m2 defines CKD. Patients with eGFR values>=60 mL/min/1.73 m2 may also have CKD if evidence ofpersistent proteinuria. Additional information may be foundat www.kidney.org. SODIUM 141 mmol/L (136-145) POTASSIUM 3.7 mmol/L (3.5-5.1) CHLORIDE 103 mmol/L (98-107) CARBON DIOXIDE 25 mmol/L (21-32) CALCIUM 8.8 mg/dL (8.5-10.1) TOTAL PROTEIN 7.8 g/dL (6.4-8.2) ALBUMIN 4.0 g/dL (3.3-5.0) BILIRUBIN, TOTAL 0.4 mg/dL (0.0-1.0) ALKALINE PHOSPHATASE 88 U/L (46-116) AST (SGOT) 12 L U/L (15-37) ALT (SGPT) 17 U/L (12-78) BETA HCG, QUANTITATIVE 5837 mIU/mL REFERENCE RANGE:Adult Males: <2 mIU/mLNon- Females: <6 mIU/mL Females:Approximate Approximate hCGGestational Age Range (mIU/mL) 0-1 week 0-501-2 weeks 40-3002-3 weeks 100-56418-2 weeks 500-74079-1 months 5,000-200,0002-3 months 10,000-100,0002nd trimester 3,000-50,0003rd trimester 1,000-50,000 Type & Rh: (RUBEN: 07/30/2016 10:15) ( MsgRcvd 07/30/2016 11:26) Final results Test Result Flag Units (Reference) PATIENT BLOOD TYPE O Positive . PROGRESS AND PROCEDURES Disposition: Discharged home in good condition. Condition: good. CLINICAL IMPRESSION Threatened ; positive test in emergency department. Ultrasound demonstrated an intrauterine . INSTRUCTIONS Follow-up: Screening today revealed the patient's blood pressure to be in the normal range. Follow-up with: [facility], [facility] Practice, , [address] [place] [address], [id number], [place] [address] Follow up in two days. Call for an appointment. (Electronically signed by Daren Khan Dr. 07/30/2016 22:14)
--- NOTE | 2016-07-30 12:10 | ED CLINICAL REPORT ---
Clinical Report - Physicians/Mid Levels [facility] [address] [place] [address] 07/30/2016 9:51 [id number] Time Seen: 10:01; initial patient contact. Arrived- By private vehicle. Historian- patient. HISTORY OF PRESENT ILLNESS Chief Complaint: VAGINAL BLEEDING and PASSING TISSUE. This started today and still present. It was abrupt in onset. The symptoms are described as moderate. Modifying factors. Not worsened by anything. Not relieved by anything. The patient has had mild, crampy pelvic pain. No flank pain, pain with urination, urinary frequency, urgency of urination or hematuria. Currently . Not receiving care. Similar symptoms previously: Once. Recent medical care: The patient was seen recently at this facility in the emergency department (Seen here 7 days ago for vag bleed. US confirmed IUP. beta HCG 4719. O+ blood type.). REVIEW OF SYSTEMS No nausea, vomiting, fever, chills or dizziness. No fainting episodes. All systems otherwise negative, except as recorded above. PAST HISTORY ( Threatened . Pg, bleeding . Vomiting. Abdominal Pain.). Additional Surgeries: no known surgeries. Medications: None. Allergies: No Known Drug Allergy. SOCIAL HISTORY Never smoker. Occasional alcohol use. No drug use. ADDITIONAL NOTES The nursing notes have been reviewed. PHYSICAL EXAM Vital Signs: 07/30/2016 09:59 BP: 102/75. HR: 87. RR: 18. O2 saturation: 100%. Temp: 98.1 F. Pain level now: 0/10. Have been reviewed as normal. Appearance: Alert. Oriented X3. No acute distress. HEENT: Normal external inspection. ENT: Pharynx normal. CVS: Heart sounds normal. Rate normal. Rhythm normal. Respiratory: No respiratory distress. Breath sounds normal. Abdomen: Soft. Mild tenderness in the lower abdomen. No guarding or rebound tenderness. Bowel sounds normal. No organomegaly. No mass. : Speculum exam performed. External inspection normal. Slight vaginal bleeding, consisting of dark blood, via the cervical os. Cervical os open. Cervical dilation present. No tissue present. No tenderness present on bimanual exam. No uterine tenderness. No tenderness with movement of the cervix. No adnexal tenderness. No adnexal mass/fullness. No pelvic mass. (RUSS Nava present for exam). Skin: Skin warm and dry. Normal skin color. Neuro: Oriented X 3. Mood/affect normal. LABS, X-RAYS, AND EKG Laboratory Tests: UA-Culture if indicated: (RUBEN: 07/30/2016 11:20) ( [facility] [place] 07/30/2016 11:33) Final results Test Result Flag Units (Reference) URINE COLOR YELLOW URINE APPEARANCE CLEAR URINE GLUCOSE NEGATIVE (NEGATIVE) URINE BILIRUBIN NEGATIVE (NEGATIVE) URINE KETONE TRACE (NEGATIVE) URINE SPECIFIC GRAVITY 1.010 (1.010-1.030) URINE PH 7.0 (5.0-8.0) URINE PROTEIN NEGATIVE (NEGATIVE) URINE UROBILINOGEN 0.2 EU/dL (0.2-1.0) URINE NITRITE NEGATIVE (NEGATIVE) URINE BLOOD 2+ (NEGATIVE) URINE LEUK ESTERASE NEGATIVE (NEGATIVE) URINE RBC RARE rbc/hpf (0-1) URINE WBC 0-1 wbc/hpf (0-1) URINE EPITHELIAL CELLS 1-3 EPI/hpf (0-5) URINE BACTERIA FEW (1+) (NONE SEEN) URINE COMMENT CULT NOT INDICATED 1+ MUCOUSURINE CULTURES ARE SET-UP BASED ON THE FOLLOWING CRITERIA:POSITIVE NITRITEPOSITIVE LEUKOCYTE ESTERASEGREATER THAN 10 WHITE BLOOD CELLSMODERATE (2+) OR GREATER BACTERIA CBC w Diff: (RUBEN: 07/30/2016 10:15) ( [facility] [place] 07/30/2016 10:33) Final results Test Result Flag Units (Reference) WHITE BLOOD COUNT 7.9 K/uL (4.5-11.5) RED BLOOD COUNT 4.53 M/uL (4.00-5.20) HEMOGLOBIN 12.6 gm/dL (12.0-16.0) HEMATOCRIT 38.2 % (36.0-46.0) MEAN CELL VOLUME 84 fL (80-100) MEAN CORPUSCULAR HGB 28 pg (26-34) MEAN CORPUSCULAR HGB CONC 33 g/dL (31-37) RED CELL DISTRIBUTION WIDTH 15.0 H % (11.6-14.8) PLATELET COUNT 342 K/uL (150-400) NEUTROPHIL % 70.2 % (50-75) LYMPH % 22.0 L % (25-40) MONO % 6.1 % (3-14) EOSINOPHIL % 1.4 % (0-4) BASOPHIL % 0.3 % (0-2) CMP: (RUBEN: 07/30/2016 10:15) ( MsgRcvd 07/30/2016 11:17) Final results Test Result Flag Units (Reference) GLUCOSE 91 mg/dL (70-110) BUN 9 mg/dL (7-18) CREATININE 0.5 L mg/dL (0.6-1.3) Estimated GFR >60 mL/min Estimated GFR- >60 mL/min Note: Persistent reduction over 3 months in eGFR<60 mL/min/1.73 m2 defines CKD. Patients with eGFR values>=60 mL/min/1.73 m2 may also have CKD if evidence ofpersistent proteinuria. Additional information may be foundat www.kidney.org. SODIUM 141 mmol/L (136-145) POTASSIUM 3.7 mmol/L (3.5-5.1) CHLORIDE 103 mmol/L (98-107) CARBON DIOXIDE 25 mmol/L (21-32) CALCIUM 8.8 mg/dL (8.5-10.1) TOTAL PROTEIN 7.8 g/dL (6.4-8.2) ALBUMIN 4.0 g/dL (3.3-5.0) BILIRUBIN, TOTAL 0.4 mg/dL (0.0-1.0) ALKALINE PHOSPHATASE 88 U/L (46-116) AST (SGOT) 12 L U/L (15-37) ALT (SGPT) 17 U/L (12-78) BETA HCG, QUANTITATIVE 5837 mIU/mL REFERENCE RANGE:Adult Males: <2 mIU/mLNon- Females: <6 mIU/mL Females:Approximate Approximate hCGGestational Age Range (mIU/mL) 0-1 week 0-501-2 weeks 40-3002-3 weeks 100-14425-3 weeks 500-85674-8 months 5,000-200,0002-3 months 10,000-100,0002nd trimester 3,000-50,0003rd trimester 1,000-50,000 Type & Rh: (RUBEN: 07/30/2016 10:15) ( MsgRcvd 07/30/2016 11:26) Final results Test Result Flag Units (Reference) PATIENT BLOOD TYPE O Positive . PROGRESS AND PROCEDURES Disposition: Discharged home in good condition. Condition: good. CLINICAL IMPRESSION Threatened ; positive test in emergency department. Ultrasound demonstrated an intrauterine . INSTRUCTIONS Follow-up: Screening today revealed the patient's blood pressure to be in the normal range. Follow-up with: [facility], Family Practice, , [address] [place] [address], [address], [place] [id number] Follow up in two days. Call for an appointment. (Electronically signed by Daren Khan Dr. 07/30/2016 22:14)
--- NOTE | 2016-07-30 12:10 | ED ORDER SUMMARY ---
..... Patient: KELLY BENNETT OrderSheet [facility] VisitID: [id number] [place] [address] 26y, F Registration Date/Time: 07/30/2016 ORDER SHEET Weight: 58.9 kg (estimated) Allergies: No Known Drug Allergy GENERAL ORDERS: CBC w Diff Urgent (10:07/30/2016 Ata Dunham) (Ack 10:05 Andrea) (10:27 Kayla R.N.) CMP Urgent (10:07/30/2016 Ata Dunham) (Ack 10:05 Andrea) (10:27 Kayla R.N.) UA-Culture if indicated Urgent (10:07/30/2016 Ata Dunham) (Ack 10:05 Andrea) (11:21 Ayan R.N.) Serum Quantitative Urgent (10:07/30/2016 Ata Dunham) (Ack 10:05 Andrea) (10:27 Kayla R.N.) Type & Rh Urgent (10:07/30/2016 Ata Dunham) (Ack 10:05 Andrea) (10:27 Kayla R.N.) MEDICATION ORDERS: IV FLUIDS: IV Saline Lock (:07/30/2016 Ata Dunham) (10:27 Kayla R.N.) ORDER SHEET NOTES: [Electronically signed by Tiffany Asencio R.N. (12:33 07/30/2016)] [Electronically signed by Daren Khan Dr. (22:14 07/30/2016)] [Electronically locked/signed by Tiffany Asencio R.N. (12:33 07/30/2016)]
--- NOTE | 2016-07-30 22:15 | ED MED RECONCILIATION SUMMARY ---
Patient: KELLY BENNETT Medication Reconciliation Report [facility] VisitID: [id number] [address] [place] [address] 26y, F Registration Date/Time: 07/30/2016 Weight: 58.9 kg Height/Length: 63 in. BMI: 23.0 ALLERGIES: No Known Drug Allergy The patient's Home Medications are listed below: NONE. The source(s) of the original Home Medication information: patient The following Medications were given to the patient in the Emergency Department: None. The following Medications were prescribed to the patient: None.
--- NOTE | 2016-07-30 22:15 | ED MED RECONCILIATION SUMMARY ---
Patient: KELLY BENNETT Medication Reconciliation Report [facility] VisitID: [id number] [address] [place] [place] [address] 26y, F Registration Date/Time: 07/30/2016 Weight: 58.9 kg Height/Length: 63 in. BMI: 23.0 ALLERGIES: No Known Drug Allergy The patient's Home Medications are listed below: NONE. The source(s) of the original Home Medication information: patient The following Medications were given to the patient in the Emergency Department: None. The following Medications were prescribed to the patient: None.
--- NOTE | 2016-07-30 22:15 | ED DISCHARGE INSTRUCTIONS ---
Patient: KELLY BENNETT General Instructions [facility] VisitID: [id number] [place] [address] 26y, F Registration Date/Time: 07/30/2016 INSTRUCTIONS Follow-up: Screening today revealed the patient's blood pressure to be in the normal range. Follow-up with: [facility], , [address] [place] [address], [address], [place] [phone] Follow up in two days. Call for an appointment. ADDITIONAL INFORMATION Possible Miscarriage (Threatened ) During early (first three months), it is not uncommon to have a small amount of bleeding. This can be entirely normal. But heavy bleeding or severe cramping can be an early sign of miscarriage. A miscarriage means unexpected loss of your . In about half of patients with bleeding or cramping during early , these symptoms will stop and the will continue normally. However, half of the time a miscarriage will occur. A miscarriage may occur due to various causes. These include a problem with the babys chromosomes (genes that carry the information needed for life) or with fertilization or implantation that didnt happen correctly. In most cases no cause can be found. Be reassured that this is not the result of anything that you did wrong, and it will not interfere with your ability to become in the future. Home Care: To improve the chance of keeping this , you should do the following: Rest in bed until the pain and bleeding stop. Do not have sexual intercourse for the next 3 weeks. Use sanitary napkins instead of tampons. Do not douche. Follow-Up: Make an appointment with your doctor within the next week, or as directed by our staff. Note: If you had an ultrasound, it will be reviewed by a specialist. You will be notified of any new findings that may affect your care. Get Prompt Medical Attention if any of the following occur: Vaginal bleeding or pain for more than three days Heavy bleeding (soaking one new pad an hour over three hours) Fever of 100.4F (38C) or higher, or as directed by your healthcare provider Increasing lower abdominal pain Weakness, dizziness, or fainting Passage of anything that resembles tissue: pink or grayish membrane or solid material (save the tissue in a clean container and bring to the doctor) You have been given the following additional information: Possible Miscarriage (Threatened ) (Electronically signed by Daren Khan Dr. 07/30/2016 22:14)
--- NOTE | 2016-07-30 22:15 | ED DISCHARGE INSTRUCTIONS ---
Patient: KELLY BENNETT General Instructions [facility] VisitID: [id number] [place] [address] 26y, F Registration Date/Time: 07/30/2016 INSTRUCTIONS Follow-up: Screening today revealed the patient's blood pressure to be in the normal range. Follow-up with: [facility], , [address] [place] [address], [address], [place] [phone] Follow up in two days. Call for an appointment. ADDITIONAL INFORMATION Possible Miscarriage (Threatened ) During early (first three months), it is not uncommon to have a small amount of bleeding. This can be entirely normal. But heavy bleeding or severe cramping can be an early sign of miscarriage. A miscarriage means unexpected loss of your . In about half of patients with bleeding or cramping during early , these symptoms will stop and the will continue normally. However, half of the time a miscarriage will occur. A miscarriage may occur due to various causes. These include a problem with the babys chromosomes (genes that carry the information needed for life) or with fertilization or implantation that didnt happen correctly. In most cases no cause can be found. Be reassured that this is not the result of anything that you did wrong, and it will not interfere with your ability to become in the future. Home Care: To improve the chance of keeping this , you should do the following: Rest in bed until the pain and bleeding stop. Do not have sexual intercourse for the next 3 weeks. Use sanitary napkins instead of tampons. Do not douche. Follow-Up: Make an appointment with your doctor within the next week, or as directed by our staff. Note: If you had an ultrasound, it will be reviewed by a specialist. You will be notified of any new findings that may affect your care. Get Prompt Medical Attention if any of the following occur: Vaginal bleeding or pain for more than three days Heavy bleeding (soaking one new pad an hour over three hours) Fever of 100.4F (38C) or higher, or as directed by your healthcare provider Increasing lower abdominal pain Weakness, dizziness, or fainting Passage of anything that resembles tissue: pink or grayish membrane or solid material (save the tissue in a clean container and bring to the doctor) You have been given the following additional information: Possible Miscarriage (Threatened ) (Electronically signed by Daren Khan Dr. 07/30/2016 22:14)
--- NOTE | 2016-07-30 22:15 | ED MAR SUMMARY ---
..... Medication Administration Record [facility] [address] [place], [place] [id number] Patient: ENRIQUETA GASTONYUMIKO KELLY Visit ID: [id number] 26y, F Weight: 58.9 kg Height/Length: 63 in BMI: 23 ALLERGIES: No Known Drug Allergy
--- NOTE | 2016-07-30 22:15 | ED MAR SUMMARY ---
..... Medication Administration Record [facility] [address] [place], [place] [id number] Patient: ENRIQUETA GASTONYUMIKO KELLY Visit ID: [id number] 26y, F Weight: 58.9 kg Height/Length: 63 in BMI: 23 ALLERGIES: No Known Drug Allergy
== END 2016-07-30 12:25 | disposition home or self-care (01) ==
LOC: ED SRH 09:49
DX: O20.0 Threatened abortion (principal); Z3A.01 Less than 8 weeks gestation of pregnancy
CPT/HCPCS: 90001; 90004; 90100; 90155; 90197; 95059